=== PATIENT | female | born 1965 | race Caucasian/White ===

== ENCOUNTER 2018-02-09 20:19 | Emergency (ER) | payer MEDICARE, MEDICAID ==
[~2018-02-09] VITALS: Ht 162.6 cm; Wt 66.0 kg
[2018-02-09] MEDS ORDERED: IBUPROFEN 600MG TABLET PO ONE (23:15)
[2018-02-10 01:00] VITALS: BP 114/87
== END 2018-02-10 01:15 | disposition home or self-care (01) ==
LOC: ER 20:19
DX: S63.501A Unspecified sprain of right wrist, initial encounter (principal); S93.602A Unspecified sprain of left foot, initial encounter; F17.200 Nicotine dependence, unspecified, uncomplicated; W01.0XXA Fall on same level from slipping, tripping and stumbling without subsequent striking against object, initial encounter; Y93.89 Activity, other specified; Y92.018 Other place in single-family (private) house as the place of occurrence of the external cause
CPT/HCPCS: 29125; 73080; 73110; 73630; 99284

== ENCOUNTER 2022-11-25 13:22 | Inpatient (IN) | payer MEDICARE, MEDICAID ==
[~2022-11-25] VITALS: Ht 154.9 cm; Wt 64.9 kg
[2022-11-25] MEDS ORDERED: SODIUM CHLORIDE 0.9% 1000ML BAG (SEPSIS BOLUS) IV ONE (13:45)
[2022-11-25 15:18] LABS: BASOPHILS % 0.2 % (0.0-2.0); EOSINOPHILS % 0.2 % (0.0-5.0); HEMOGLOBIN. 15.6 g/dL (12.0-16.0); MEAN CORPUSCULAR HEMOGLOBIN 27.5 pg (28.0-32.0); MEAN CORPUSCULAR VOLUME 84.6 fL (81.0-99.0); MEAN PLATELET VOLUME 8.1 fl (7.4-10.4); MONOCYTES % 6.3 % (2.0-8.0); NEUTROPHILS % 83.3 % (40.0-76.0); PLATELET 247 x1000/uL (130-400); RED BLOOD CELL COUNT 5.67 mill/uL (4.2-5.4); RED CELL DISTRIBUTION WIDTH 15.7 % (11.6-14.6)
[2022-11-25 15:24] LABS: CHLORIDE 108 mEq/L (98-107)
[2022-11-25 15:38] LABS: CLARITY URINE CLOUDY (CLEAR); COLOR URINE YELLOW (YELLOW); KETONES URINE NEGATIVE (NEGATIVE); LEUKOCYTE ESTERASE URINE 1+ (NEGATIVE); NITRITE URINE POSITIVE (NEGATIVE); OCCULT BLOOD URINE NEGATIVE (NEGATIVE); PROTEIN URINE NEGATIVE (NEGATIVE); SPECIFIC GRAVITY URINE 1.017 (1.005-1.030)
[2022-11-25] MEDS ORDERED: CEFTRIAXONE 1GM PREMIX 50 ML IV ONE (16:30)
[2022-11-25] MEDS ORDERED: DOCUSATE SODIUM 100MG CAPSULE PO PRN (19:30)
[2022-11-25] MEDS ORDERED: ACETAMINOPHEN 325MG TABLET PO PRN (19:30)
[2022-11-25] MEDS ORDERED: MAGNESIUM/ALUMINUM HYDROXIDE/SIMETHICONE 30ML UDC PO PRN (19:30)
[2022-11-25] MEDS ORDERED: ONDANSETRON HCL 4MG/2ML INJ IV PRN (19:30)
[2022-11-25] MEDS ORDERED: IPRATROPIUM/ALBUTEROL 0.5-3(2.5)MG/3ML NEB HHN PRN (19:30)
[2022-11-25 20:31] LABS: INR 1.1; PROTHROMBIN TIME 11.3 sec (9.6-11.0)
[2022-11-25 21:17] LABS: PHOSPHORUS 3.1 mg/dL (2.5-4.9)
[2022-11-25 22:00] VITALS: BP 120/81
[2022-11-25 22:47] LABS: BG BASE EXCESS 2.8 mmol/L (-2.0-2.0); BG CARBOXYHEMOGLOBIN 1.2 % (0.5-1.5); BG DEOXYHEMOGLOBIN 6.9 % (0.0-5.0); BG FRACTION INSPIRED OXYGEN 21; BG HCO3 ACT 29.8 mmol/L (22.0-26.0); BG OXYHEMOGLOBIN 91.9 % (94.0-97.0); BG PCO2 55.1 mmHg (35.0-45.0); BG PH 7.351 (7.350-7.450); BG PO2 66.7 mmHg (75.0-100.0); BG SAMPLE SITE RIGHT RADIAL; BG TOTAL HEMOGLOBIN 14.8 g/dL (12.0-18.0); BG VENT MODE ROOM AIR
[2022-11-25] MEDS: ENOXAPARIN 40MG/0.4ML SYR SUBCUT SCH (23:02)
[2022-11-25] MEDS: SODIUM CHLORIDE 0.9% 1,000 ML IV SCH (23:06)
[2022-11-26] VITALS: BP 105/71
[2022-11-26 01:09] LABS: CREATINE KINASE 135 IU/L (26-192); CREATINE KINASE MB FRACTION 2.4 ng/mL (0.5-3.6)
[2022-11-26 04:00] VITALS: BP 104/67
[2022-11-26 06:42] LABS: BASOPHILS % 0.7 % (0.0-2.0); EOSINOPHILS % 0.7 % (0.0-5.0); HEMATOCRIT. 47.4 % (36.0-48.0); HEMOGLOBIN. 15.5 g/dL (12.0-16.0); LYMPHOCYTES % 21.4 % (20.0-50.0); MEAN CORPUSCULAR HEMOGLOBIN 27.8 pg (28.0-32.0); MEAN CORPUSCULAR VOLUME 84.9 fL (81.0-99.0); MEAN PLATELET VOLUME 7.9 fl (7.4-10.4); MONOCYTES % 8.2 % (2.0-8.0); PLATELET 229 x1000/uL (130-400); RED BLOOD CELL COUNT 5.58 mill/uL (4.2-5.4); RED CELL DISTRIBUTION WIDTH 15.8 % (11.6-14.6)
[2022-11-26 07:16] LABS: CHLORIDE 110 mEq/L (98-107); CREATINE KINASE 164 IU/L (26-192); CREATINE KINASE MB FRACTION 2.8 ng/mL (0.5-3.6); HDL CHOLESTEROL 59 mg/dL (40-59); LDL CHOLESTEROL 92 mg/dL (5-100)
[2022-11-26 07:50] VITALS: BP 134/77
[2022-11-26] MEDS: PANTOPRAZOLE SODIUM 40 MG/VIAL IV SCH (09:47)
[2022-11-26 10:59] LABS: *AMPHETAMINES SCREEN URINE NEGATIVE (NEGATIVE); *BARBITURATES SCREEN URINE NEGATIVE (NEGATIVE); *BENZODIAZEPINES SCREEN URINE NEGATIVE (NEGATIVE); *COCAINE SCREEN URINE NEGATIVE (NEGATIVE); CANNABINOID URINE SCREEN NEGATIVE (NEGATIVE); METHADONE URINE SCREEN NEGATIVE (NEGATIVE); OPIATES URINE SCREEN NEGATIVE (NEGATIVE); PHENCYCLIDINE URINE SCREEN NEGATIVE (NEGATIVE)
[2022-11-26 11:27] VITALS: BP 111/80
[2022-11-26 15:59] VITALS: BP 120/74
[2022-11-26] MEDS: CEFTRIAXONE 1,000 MG in DEXTROSE 5% WATER 50 ML IV SCH (17:34)
[2022-11-26 20:00] VITALS: BP 91/57
[2022-11-26] MEDS: ENOXAPARIN 40MG/0.4ML SYR SUBCUT SCH (23:47)
[2022-11-27] VITALS (7 sets, daily range): BP systolic 91–140; BP diastolic 56–89
[2022-11-27] MEDS: SODIUM CHLORIDE 0.9% 1,000 ML IV SCH ×3 (01:48→17:53)
[2022-11-27] MEDS: PANTOPRAZOLE SODIUM 40 MG/VIAL IV SCH (08:18)
[2022-11-27] MEDS: CEFTRIAXONE 1,000 MG in DEXTROSE 5% WATER 50 ML IV SCH (17:53)
[2022-11-27] MEDS: ENOXAPARIN 40MG/0.4ML SYR SUBCUT SCH (23:41)
[2022-11-28] VITALS (7 sets, daily range): BP systolic 101–120; BP diastolic 62–74
[2022-11-28] MEDS: SODIUM CHLORIDE 0.9% 1,000 ML IV SCH ×2 (04:34→16:14)
[2022-11-28] MEDS ORDERED: NITR-87 MT (07:28)
[2022-11-28] MEDS: FAMOTIDINE 20MG/2ML VIAL IV SCH ×2 (08:32→20:31)
[2022-11-28] MEDS: CEFTRIAXONE 1,000 MG in DEXTROSE 5% WATER 50 ML IV SCH (16:14)
[2022-11-29] MEDS ORDERED: FAMOTIDINE 20MG TABLET PO SCH (09:00)
== END 2022-11-28 21:55 | disposition home or self-care (01) | DRG 640 ==
LOC: ER 13:50 → EDBEDREQ 18:01 → EDBEDREQTM 18:01 → 7WST 18:40 → EDBEDREQSVC 18:45 → EDBEDREQTM 18:45 → ENRESERV 20:23 → 7WST 21:21
PROVIDERS: ADMIT Internal Medicine; ATTEND Internal Medicine
DX: E86.0 Dehydration (principal); A41.9 Sepsis, unspecified organism; E44.1 Mild protein-calorie malnutrition; I48.92 Unspecified atrial flutter; N39.0 Urinary tract infection, site not specified; G71.11 Myotonic muscular dystrophy; R74.01 Elevation of levels of liver transaminase levels; Z99.3 Dependence on wheelchair; Z66 Do not resuscitate; Z68.27 Body mass index [BMI] 27.0-27.9, adult
CPT/HCPCS: 36415; 36600; 71045; 76700; 80053; 80061; 80305; 81003; 82375; 82550; 82553; 82805; 83605; 83735; 83880; 84100; 84145; 84439; 84443; 84484; 85025; 85651; 93005; 93306; 93970; 97162; 97530; 99285; C9113; J0696; J1650; J3490; J7030; J7060